=== PATIENT | male | born 1990 | race Caucasian/White ===

== ENCOUNTER 2018-05-31 20:49 | Emergency (ER) | payer SELFPAY ==
--- NOTE | 2018-05-31 21:01 | PDOC ---
Rapid Medical Evaluation Time Seen by Provider: 05/31/18 20:57 Medical Evaluation: Allergies Allergy/AdvReac Type Severity Reaction Status Date / Time No Known Allergies Allergy Verified 09/27/15 12:59 05/31/18 20:57 Pt presents for low back pain. 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 No saddle anaesthesia, bladder/bowel incontinence. No urinary symptoms Exam: TTP of the paraspinous muscles to the lower back, Normal gait Orders: Nothing Pt to proceed to the ED for further evaluation Discharge Disposition - Diagnosis Back pain - Referrals - Patient Instructions - Post Discharge Activity
[2018-05-31 21:02] VITALS: BP 135/78; PULSE 74; TEMP 98.1; BMI 31.1
[2018-05-31] MEDS ORDERED: CYCLOBENZAPRINE HCL 10 MG TABLET (FP) PO ONE (21:32)
[2018-05-31] MEDS ORDERED: KETOROLAC TROMETHAMINE 60 MG/2 ML VIAL IM ONE (21:32)
[2018-05-31] MEDS ORDERED: KETOROLAC TROMETHAMINE 60 MG/2 ML VIAL ONE (21:33)
[2018-05-31] MEDS ORDERED: CYCLOBENZAPRINE HCL 10 MG TABLET (FP) ONE (21:34)
--- NOTE | 2018-05-31 22:05 | PDOC ---
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 Patient has no complaints of saddle anesthesia, weakness of the lower extremities, abdominal pain, or incontinence. Occurred: reports: just prior to arrival Severity: reports: mild Pain Location: reports: back Method of Injury: Yes: unknown Modifying Factors: improves with: None Loss of Consciousness: no loss of consciousness Associated Symptoms (Fall): denies symptoms Past History - Travel Traveled outside of the country in the last 30 days: No - Past Medical History Allergies/Adverse Reactions: Allergies Allergy/AdvReac Type Severity Reaction Status Date / Time No Known Allergies Allergy Verified 05/31/18 21:01 Home Medications: Ambulatory Orders No Home Medications 0 dose .ROUTE UTDICT 02/28/14 COPD: No - Suicide/Smoking/Psychosocial Hx Smoking Status: No Smoking History: Current some day smoker Have you smoked in the past 12 months: Yes Number of Cigarettes Smoked Daily: 2 Cigars Per Day: 2 Information on smoking cessation initiated: No Hx Alcohol Use: No Drug/Substance Use Hx: No Substance Use Type: None Patient Lives Alone: No Lives with/in: spouse/SO Review of Systems - Review of Systems Able to Perform ROS?: No Is the patient limited Citizen Of [place] proficient: Yes Respiratory: No: Symptoms reported ABD/GI: No: Symptoms Reported Musculoskeletal: Yes: Back Pain Integumentary: No: Symptoms Reported Neurological: No: Symptoms reported *Physical Exam - Vital Signs Last Vital Signs Temp Pulse Resp BP Pulse Ox 98.1 F 74 17 135/78 98 05/31/18 20:59 05/31/18 20:59 05/31/18 20:59 05/31/18 20:59 05/31/18 20:59 - Physical Exam General Appearance: Yes: Nourished, Appropriately Dressed. No: Apparent Distress Neck: positive: Supple. negative: Decreased range of motion Gastrointestinal/Abdominal: positive: Soft. negative: Tenderness Musculoskeletal: positive: Other (noted right paraspinous tenderness at L2-L4). negative: CVA Tenderness, Vertebral Tenderness (no midline tenderness) Extremity: positive: Normal Inspection, Normal Range of Motion Integumentary: positive: Normal Color, Warm, Moist Neurologic: positive: Motor Strength 5/5 (ambulatory) ED Treatment Course - Medications Given in the ED: ED Medications Discontinued Medications Generic Name Dose Route Start Last Admin Trade Name Michaelq PRN Reason Stop Dose Admin Cyclobenzaprine HCl 5 mg 05/31/18 21:32 05/31/18 21:41 Flexeril - PO 05/31/18 21:33 5 mg ONCE ONE Administration Ketorolac Tromethamine 60 mg 05/31/18 21:32 05/31/18 21:41 Toradol Injection - IM 05/31/18 21:33 60 mg ONCE ONE Administration Medical Decision Making - Medical Decision Making 05/31/18 21:05 Patient with low back pain after straining his back using poor body mechanics lifting an item. Patient had no midline tenderness on exam and likely with muscle spasm. Patient ordered for Toradol and Flexeril 05/31/18 22:05 States feeling much better wants to be discharged home. Patient be discharged home with the same medication. *DC/Admit/Observation/Transfer Diagnosis at time of Disposition: Back pain - Discharge Dispostion Disposition: HOME Condition at time of disposition: Improved - Referrals - Patient Instructions Printed Discharge Instructions: DI for Low Back Pain Additional Instructions: PLease take medication Faina for discomfort. May apply ice to the affected area for the next 3 days. Please use proper body mechanics to avoid injury. - Post Discharge Activity Forms/Work/School Notes: Back to Work
== END 2018-05-31 22:10 | disposition home or self-care (01) ==
LOC: JERFT 20:49
PROC: 3E0233Z Introduction of Anti-inflammatory into Muscle, Percutaneous Approach (ICD-10-PCS; principal; 2018-05-31)
DX: M62.830 Muscle spasm of back (principal); X50.0XXA Overexertion from strenuous movement or load, initial encounter; Y93.H3 Activity, building and construction; Y92.69 Other specified industrial and construction area as the place of occurrence of the external cause; Y99.0 Civilian activity done for income or pay
CPT/HCPCS: 99281-25

== ENCOUNTER 2020-04-24 23:31 | Emergency (ER) | payer SELFPAY ==
[2020-04-24 23:38] VITALS: BMI 29.8
[2020-04-24] MEDS ORDERED: SODIUM CHLORIDE 1,000 ML IV STA (23:45)
--- NOTE | 2020-04-24 23:47 | PDOC ---
History of Present Illness - General Chief Complaint: Pain Stated Complaint: ABD PAIN Time Seen by Provider: 04/24/20 23:45 History Source: Patient, Spouse Exam Limitations: Language Barrier - History of Present Illness Initial Comments: Turner Molina is 30 Indian speaking male, with no significant PMH/PSH, presents with two days of abdominal pain, vomiting and diarrhea. Hx was provided by his (translation from the patient). Patient reports sudden onset of nausea, vomiting and diarrhea, associated with fever and chills. Last meal before episode was parmesan chicken sandwich. Temp last night 100.2, took Ibuprofen. He reports 2 episodes of vomiting today, yellow, non bilious, non bloody. He reports >20 episodes of diarrhea today, yellowish/orange color, no gross blood. Patient reports that his diarrhea started black color and turned yellow. He endorses an epigastric abdominal pain, non radiating, sharp, worsen with food, no resolutions, 8/10. Increased pain with defecations and increased flatulence. Patient denies any SOb, chest pain, palpitations, headache, changes in vision, difficulty swallowing, weakness, inability to ambulate. Patient has been tolerating clear liquid diet for the past two days, soups. took pepto and imodium at home w/o any relief of symptoms. 04/25/20 00:36 Past History - Travel History Traveled outside of the country in the last 30 days: No Close contact w/someone who was outside of country & ill: No - Medical History Allergies/Adverse Reactions: Allergies Allergy/AdvReac Type Severity Reaction Status Date / Time No Known Allergies Allergy Verified 04/24/20 23:38 Home Medications: Ambulatory Orders No Home Medications 0 dose .ROUTE UTDICT 02/28/14 Cyclobenzaprine HCl [Flexeril -] 5 mg PO TID PRN #12 tablet 05/31/18 Ibuprofen [Motrin -] 600 mg PO TID PRN #21 tablet 05/31/18 Famotidine [Pepcid] 20 mg PO BID 14 Days #30 tablet 04/25/20 COPD: No - Psycho-Social/Smoking History Smoking Status: No Smoking History: Never smoked Have you smoked in the past 12 months: Yes Number of Cigarettes Smoked Daily: 2 Cigars Per Day: 2 - Substance Abuse Hx (Audit-C & DAST Scrn) How often the patient has a drink containing alcohol: Never Score: In Men: 4 or > Positive; In Women: 3 or > Positive: 0 Screen Result (Pos requires Nsg. Audit-10AR): Negative Review of Systems - Review of Systems Able to Perform ROS?: Yes Is the patient limited Sw[place] proficient: Yes Constitutional: Yes: Chills, Fever, Loss of Appetite. No: Weakness HEENTM: No: Blurred Vision, Throat Pain, Throat Swelling, Difficulty Swallowing Respiratory: No: Cough, Shortness of Breath, Wheezing Cardiac (ROS): Yes: Lightheadedness. No: Chest Pain, Edema, Palpitations, Syncope ABD/GI: Yes: Abd. Pain w/ defecation, Diarrhea, Nausea, Poor Appetite, Poor Fluid Intake, Vomiting. No: Abdominal Distended, Blood Streaked Bowels, Constipated, Difficulty Swallowing, Rectal Bleeding : No: Burning, Dysuria, Flank Pain, Hematuria Musculoskeletal: No: Back Pain, Muscle Pain, Muscle Weakness Integumentary: Yes: Rash (b/l upper legs rash, pruritic) Neurological: No: Headache, Weakness, Dizziness *Physical Exam - Vital Signs Last Vital Signs Temp Pulse Resp BP Pulse Ox 98 F 87 18 130/76 98 04/24/20 23:34 04/24/20 23:34 04/24/20 23:34 04/24/20 23:34 04/24/20 23:34 - Physical Exam General Appearance: Yes: Nourished, Appropriately Dressed. No: Apparent Distress HEENT: positive: EOMI, BRANDIE. negative: Scleral Icterus (R), Scleral Icterus (L), Nasal Congestion, Rhinorrhea Neck: positive: Supple. negative: Tender, Rigid, Carotid bruit, Lymphadenopathy (R), Lymphadenopathy (L) Respiratory/Chest: positive: Lungs Clear, Normal Breath Sounds. negative: Respiratory Distress, Crackles, Rales, Rhonchi Cardiovascular: positive: Regular Rhythm, Regular Rate, S1, S2. negative: Edema, JVD, Murmur Vascular Pulses: Carotid (R): 2+, Carotid (L): 2+, Dorsalis-Pedis (R): 2+, Doralis-Pedis (L): 2+ Gastrointestinal/Abdominal: positive: Normal Bowel Sounds, Soft, Rebound, Tenderness (Epigastric, LLQ). negative: Distended, Guarding Musculoskeletal: negative: CVA Tenderness Extremity: negative: Pedal Edema, Calf Tenderness Integumentary: positive: Normal Color, Warm, Moist, Rash (b/l upper legs, multiple diffuse erythamatous papules). negative: Jaundice Neurologic: positive: Fully Oriented, Alert, Motor Strength 01/20 ED Treatment Course - LABORATORY CBC & Chemistry Diagram: 04/24/20 23:37 04/24/20 23:37 Medical Decision Making - Medical Decision Making 30 Indian speaking male, with no significant PMH/PSH, presents with two days of abdominal pain, vomiting and diarrhea #Gastroenteritis Vs Pancreatitis Vs cholecystitis - Fever chills at home - CBC, CMP, Lipase - PTT, PT(INR)m Mg, Phos - CXR - Abd US: r/o cholecystitis - Acetaminophen 1000,g, Pepcid 20 mg, Zofran 4mg IV 04/25/20 00:31 Discharge - Discharge Information Problems reviewed: Yes Clinical Impression/Diagnosis: Abdominal pain Condition: Improved Disposition: HOME - Additional Discharge Information Prescriptions: Famotidine [Pepcid] 20 mg PO BID 14 Days #30 tablet - Follow up/Referral Referrals: [facility] [place] Internal Med at [place] [Provider Group] Serg Washington MD [Staff Physician] - - Patient Discharge Instructions Patient Printed Discharge Instructions: Acute Abdominal Pain, Nonalcoholic Fatty Liver Disease Additional Instructions: You came to ED for abdominal pain. This is most likely from a peptic ulcer. At the ED we cely labs, did imaging on your abdomen, and gave you medication for pain and nausea. The labs showed no acute abnormality. The ultrasound of your gallbladder showed mild dilation of your Common bile duct at 5 mm (normal 4mm). The CT scan showed fatty liver and a small nodule as well. These should followed up with a Kinesiologist who we referred you to. Your workup is not complete without following up with Kinesiologist. For pain continue taking pepcid 20 mg two times a day for fourteen days, which we sent a prescription to your pharmacy. If you have any of the following please return to the ED: - worsening abdominal pain - unable to tolerate food by mouth - blood in vomiting or stool. For any emergency please call for medical help right away. - Post Discharge Activity
[2020-04-24] MEDS ORDERED: ACETAMINOPHEN 1000 MG/100 ML VIAL (NON FORMULARY) IVPB ONE (23:54)
[2020-04-25] MEDS ORDERED: ONDANSETRON 4 MG/2 ML VIAL IVPUSH ONE (00:11)
[2020-04-25] MEDS ORDERED: FAMOTIDINE 20 MG/50 ML IVPB 20 MG/50 ML MG IVPB ONE ×2 (00:11→01:13)
[2020-04-25] MEDS ORDERED: ACETAMINOPHEN INJECTION 100 ML IVPB ONE (00:15)
[2020-04-25 00:31] LABS: ALBUMIN 4.2 g/dl (3.4-5.0); BILIRUBIN,TOTAL 0.9 mg/dL (0.2-1); BLOOD UREA NITROGEN 20.6 mg/dL (7-18); CALCIUM 9.5 mg/dL (8.5-10.1); CREATININE 1.1 mg/dL (0.55-1.3); MAGNESIUM 2.3 mg/dL (1.8-2.4); PHOSPHOROUS 4.3 mg/dL (2.5-4.9); POTASSIUM 4.1 mmol/L (3.5-5.1); TOT PROT 8.3 g/dl (6.4-8.2)
[2020-04-25 00:32] LABS: BASO % 0.6 % (0-2.0); EOS % 0.6 % (0-4.5); HEMATOCRIT 43.1 % (35.4-49); HEMOGLOBIN 14.8 GM/dL (11.7-16.9); LYMPH % 27.9 % (8-40); MCHC 34.3 g/dl (32.0-35.9); MEAN CELL VOLUME 87.5 fl (80-96); MEAN PLT VOLUME 7.4 fl (7.5-11.1); MONO % 11.8 % (3.8-10.2); NEUT % 59.1 % (42.8-82.8); PLATELET COUNT 385 K/MM3 (134-434); RBC 4.93 M/mm3 (4.00-5.60); WHITE BLOOD COUNT 9.1 K/mm3 (4.0-10.0)
--- NOTE | 2020-04-25 01:16 | PDOC ---
Documentation entered by Gricelda De Luna SCRIBE, acting as scribe for Martha Sloan MD. Martha Sloan MD: This documentation has been prepared by the Annamarie gross Xhesika, SCRIBE, under my direction and personally reviewed by me in its entirety. I confirm that the documentation accurately reflects all work, treatment, procedures, and medical decision making performed by me. Attending Attestation - Resident Resident Name: Halley Zazueta - ED Attending Attestation I have performed the following: I have examined & evaluated the patient, The case was reviewed & discussed with the resident, I agree w/resident's findings & plan - HPI HPI: 04/24/20 23:57 The patient is a 30 year old male with no significant PMH of who presents to the emergency department for fever of 100.2 (at home yesterday), chills, abdominal pain, 2 episodes of nbnb vomiting and > 20 episodes of diarrhea. Pt states his last meal was a parmesan chicken sandwich. The patient denies chest pain, shortness of breath, headache and dizziness. Denies cough, and constipation. Denies dysuria, frequency, urgency and hematuria. Allergies: NKDA - Physicial Exam PE: 04/25/20 01:57 Pt has periumbilical pain; pt has LLQ pain with palpation; pt has RLQ rebound pain. Pt reports a low grade fever at home Here afebrile. HR RRR lungs CTA B Pt has no flank pain no C/C/E - Medical Decision Making 04/25/20 01:58 Pt has a normal abd US Pt will have a CT scan of his abd pelvis, 04/25/20 01:59 Pt's labs are normal/unremarkable 04/25/20 02:47 Patient Name: JUAN MIGUEL AUSTIN THIS IS A PRELIMINARY REPORT DATE OF SERVICE: 2020-04-25 00:21:23 IMAGES: 47 EXAM: ABDOMEN US -LIMITED HISTORY: 30-year-old male epigastric pain nausea vomiting diarrhea assess for cholecystitis COMPARISON: None. FINDINGS: Gallbladder is contracted. No cholelithiasis or cholecystitis. Mild 17.3 cm hepatomegaly and steatosis. Common bile duct measures 5 mm. Pancreatic head appears unremarkable. Pancreatic tail obscured by bowel gas. No right kidney nephrolithiasis or hydronephrosis. Aorta is patent. IMPRESSION: Mild hepatomegaly and steatosis. No cholelithiasis or cholecystitis. No right kidney nephrolithiasis or hydronephrosis. 04/25/20 03:26 Patient Name: JUAN MIGUEL AUSTIN THIS IS A PRELIMINARY REPORT DATE OF SERVICE: 2020-04-25 02:12:10 IMAGES: 496 EXAM: CT ABDOMEN WITH CONTRAST CT PELVIS WITH CONTRAST HISTORY: 30-Year-Old Male With Symptoms Of Left Lower Quadrant Abdominal Pain COMPARISON: April 25, 2020 Contrast: Omnipaque intravenous contrast was administered FINDINGS: Lack of oral contrast limits this exam. Mild basilar atelectasis. Right liver lobe ovoid circumscribed 0.8 cm hypodense nonspecific lesion too small to characterize axial image 33. Mild liver steatosis. The gallbladder and pancreas and adrenal glands. No nephrolithiasis or hydronephrosis. Nonoral contrast evaluation of the stomach and small bowel and appendix appear. No appendicitis. Colon appears unremarkable. No free air. No free fluid. No abscess. Bladder and prostate appear unremarkable. Moderate Degenerative disc disease lower lumbar levels. Small umbilical hernia without subcutaneous tissues and completely. Subcentimeter mesenteric lymph noted. Subcentimeter groin lymph nodes noted. IMPRESSION: Mild hepatomegaly and steatosis with a right liver lobe ovoid circumscribed hypodense nonspecific lesion too small to characterize. If clinically indicated follow-up outpatient evaluation may be needed. Stable for d/c home; Outpatient follow up 04/25/20 04:39 Discharge - Discharge Information Problems reviewed: Yes Clinical Impression/Diagnosis: Abdominal pain Condition: Improved Disposition: HOME - Additional Discharge Information Prescriptions: Famotidine [Pepcid] 20 mg PO BID 14 Days #30 tablet - Follow up/Referral Referrals: [facility] [place] Internal Med at [place] [Provider Group] Serg Washington MD [Staff Physician] - - Patient Discharge Instructions Patient Printed Discharge Instructions: Acute Abdominal Pain, Nonalcoholic Fatty Liver Disease Additional Instructions: You came to ED for abdominal pain. This is most likely from a peptic ulcer. At the ED we cely labs, did imaging on your abdomen, and gave you medication for pain and nausea. The labs showed no acute abnormality. The ultrasound of your gallbladder showed mild dilation of your Common bile duct at 5 mm (normal 4mm). The CT scan showed fatty liver and a small nodule as well. These should followed up with a Video Game Repair Technician who we referred you to. Your workup is not complete without following up with Video Game Repair Technician. For pain continue taking pepcid 20 mg two times a day for fourteen days, which we sent a prescription to your pharmacy. If you have any of the following please return to the ED: - worsening abdominal pain - unable to tolerate food by mouth - blood in vomiting or stool. For any emergency please call for medical help right away. - Post Discharge Activity
[2020-04-25 01:36] LABS: INR 1.08 (0.83-1.09); PROTHROMBIN TIME (PATIENT) 12.7 SEC (9.7-13.0)
[2020-04-25 01:39] LABS: ACTIVATED PTT 36.7 SECONDS (25.2-36.5)
--- NOTE | 2020-04-25 02:10 | PDOC ---
*Physical Exam - Vital Signs Last Vital Signs Temp Pulse Resp BP Pulse Ox 98.5 F 78 18 104/74 97 04/24/20 23:45 04/24/20 23:45 04/24/20 23:45 04/24/20 23:45 04/24/20 23:45 - Physical Exam 04/25/20 02:09 GENERAL: Awake, alert, and fully oriented, in no acute distress HEAD: No signs of trauma, normocephalic, atraumatic EYES: PERRLA, EOMI, sclera anicteric, conjunctiva clear ENT: Auricles normal inspection, hearing grossly normal, nares patent NECK: Normal ROM, supple, no lymphadenopathy, JVD, or masses LUNGS: No distress, speaks full sentences, clear to auscultation bilaterally HEART: Regular rate and rhythm, normal S1 and S2, no murmurs, rubs or gallops, peripheral pulses normal and equal bilaterally. ABDOMEN: Soft normoactive bowel sounds in all four quadrants mild tenderness to palpation in epigastric area EXTREMITIES : Normal inspection, Normal range of motion, no edema. No clubbing or cyanosis. NEUROLOGICAL: Cranial nerves II through XII grossly intact. Normal speech, normal gait, no focal sensorimotor deficits SKIN: Warm, Dry, normal turgor, no rashes or lesions noted ED Treatment Course - LABORATORY CBC & Chemistry Diagram: 04/24/20 23:37 04/24/20 23:37 - ADDITIONAL ORDERS Additional order review: Laboratory Results 04/25/20 04/24/20 04/24/20 01:48 23:37 23:37 PT with INR INR PTT (Actin FS) Sodium 135 L Potassium 4.1 Chloride 104 Carbon Dioxide 24 Anion Gap 7 L BUN 20.6 H Creatinine 1.1 Est GFR (CKD-EPI)AfAm 103.85 Est GFR (CKD-EPI)NonAf 89.61 Random Glucose 94 Calcium 9.5 Phosphorus 4.3 Magnesium 2.3 Total Bilirubin 0.9 AST 27 ALT 45 Alkaline Phosphatase 88 Total Protein 8.3 H Albumin 4.2 Lipase 123 Stool Occult Blood Negative Blood Type O POSITIVE Antibody Screen Negative 04/24/20 11:37 PT with INR 12.70 INR 1.08 PTT (Actin FS) 36.7 H Sodium Potassium Chloride Carbon Dioxide Anion Gap BUN Creatinine Est GFR (CKD-EPI)AfAm Est GFR (CKD-EPI)NonAf Random Glucose Calcium Phosphorus Magnesium Total Bilirubin AST ALT Alkaline Phosphatase Total Protein Albumin Lipase Stool Occult Blood Blood Type Antibody Screen 04/24/20 23:37 RBC 4.93 MCV 87.5 MCHC 34.3 RDW 14.0 MPV 7.4 L Neutrophils % 59.1 D Lymphocytes % 27.9 D Monocytes % 11.8 H Eosinophils % 0.6 Basophils % 0.6 - Medications Given in the ED: ED Medications Discontinued Medications Generic Name Dose Route Start Last Admin Trade Name Checo PRN Reason Stop Dose Admin Acetaminophen 1,000 mg 04/24/20 23:54 04/25/20 00:19 Ofirmev Injection - IVPB 04/24/20 23:55 1,000 mg ONCE ONE Administration Sodium Chloride 1,000 mls @ 1,000 mls/hr 04/24/20 23:45 04/25/20 00:13 Normal Saline - IV 04/25/20 00:44 1,000 mls/hr ASDIR STA Administration Famotidine/Sodium Chloride 20 mg in 50 mls @ 100 mls/hr 04/25/20 00:11 04/25/20 01:28 Pepcid 20 Mg Premixed Ivpb - IVPB 04/25/20 00:40 100 mls/hr ONCE ONE Administration Ondansetron HCl 4 mg 04/25/20 00:11 04/25/20 01:28 Zofran Injection IVPUSH 04/25/20 00:12 4 mg ONCE ONE Administration Medical Decision Making - Medical Decision Making Received Signout from Dr. Zazueta. Pt is 30 yo male with no PMH or PSH presenting to ED for abd pain, n/v/d for days. On physical exam pt had LLQ pain and epigastric pain. Pt here received adequate antinausea and pain medication. Pt receiving CT scan of abdomen. IF CT scan negative will discharge on two weeks of pepcid and GI clinic follow up. 04/25/20 03:33 Feels better and wants to go home. Pt able to tolerate PO challenge. Pt was told about CT report DC home with GI follow up and pepcid. Discharge - Discharge Information Problems reviewed: Yes Clinical Impression/Diagnosis: Abdominal pain Condition: Improved Disposition: HOME - Additional Discharge Information Prescriptions: Famotidine [Pepcid] 20 mg PO BID 14 Days #30 tablet - Follow up/Referral [place] [facility] [place] [Provider Group] Felix,Peter K, MD [Staff Physician] - - Patient Discharge Instructions Patient Printed Discharge Instructions: Acute Abdominal Pain, Nonalcoholic Fatty Liver Disease Additional Instructions: You came to ED for abdominal pain. This is most likely from a peptic ulcer. At the ED we cely labs, did imaging on your abdomen, and gave you medication for pain and nausea. The labs showed no acute abnormality. The ultrasound of your gallbladder showed mild dilation of your Common bile duct at 5 mm (normal 4mm). The CT scan showed fatty liver and a small nodule as well. These should followed up with a Demolition Hammer Operator who we referred you to. Your workup is not complete without following up with Demolition Hammer Operator. For pain continue taking pepcid 20 mg two times a day for fourteen days, which seamus carmona sent a prescription to your pharmacy. If you have any of the following please return to the ED: - worsening abdominal pain - unable to tolerate food by mouth - blood in vomiting or stool. For any emergency please call for medical help right away. - Post Discharge Activity
[2020-04-25 04:03] VITALS: BP 115/58; PULSE 60; TEMP 97.6
== END 2020-04-25 04:04 | disposition home or self-care (01) ==
LOC: JER 23:31
PROC: 3E033NZ Introduction of Analgesics, Hypnotics, Sedatives into Peripheral Vein, Percutaneous Approach (ICD-10-PCS; principal; 2020-04-24)
PROC: 3E033GC Introduction of Other Therapeutic Substance into Peripheral Vein, Percutaneous Approach (ICD-10-PCS; 2020-04-24)
PROC: 3E0337Z Introduction of Electrolytic and Water Balance Substance into Peripheral Vein, Percutaneous Approach (ICD-10-PCS; 2020-04-24)
DX: R10.9 Unspecified abdominal pain (principal)
CPT/HCPCS: 36415; 74177-TC; 76705-TC; 80053; 82272; 83690; 83735; 84100; 85025; 85610; 85730; 86850; 86900; 86901; 99285-25; J0131; Q9967

== ENCOUNTER 2021-06-14 08:00 | Emergency (ER) | payer SELFPAY ==
[2021-06-14 08:24] VITALS: BP 136/75; PULSE 66; TEMP 97.7; BMI 29.9
[2021-06-14] MEDS ORDERED: IBUPROFEN 400 MG TABLET (FP) PO ONE ×2 (08:43→08:58)
== END 2021-06-14 09:16 | disposition home or self-care (01) ==
LOC: JER 08:00
DX: S83.412A Sprain of medial collateral ligament of left knee, initial encounter (principal); Y93.64 Activity, baseball
CPT/HCPCS: 73562-TC-LT-FY; 99283-25